=== PATIENT | female | born 1955 | race Caucasian/White ===

== ENCOUNTER 2016-07-24 07:34 | Outpatient (CLI) | payer OTHER ==
[2016-07-24 08:30] LABS: #Basophils 0.1 thou/uL (0.0-0.2); #Eosinphils 0.1 thou/uL (0.0-0.7); #Lymphocytes 1.8 thou/uL (1.20-3.40); #Monocytes 0.6 thou/uL (0.11-0.59); #Neutrophils 2.8 thou/uL (1.40-6.50); %Basophils 1.1 % (0.0-1.0); %Eosinophils 2.3 % (0.0-10.0); %Lymphocytes 33.5 % (21.0-51.0); %Monocytes 11.6 % (0.0-10.0); Hematocrit 42.4 % (36.0-47.0); Mean Platelet Volume 6.3 fL (7.4-10.4); White Blood Cell (WBC) Count 5.5 thou/uL (4.8-10.8)
[2016-07-24 08:45] LABS: ALT (SGPT) 16 U/L (0-55); AST (SGOT) 11 U/L (5-34); Alkaline Phosphatase 63 U/L (40-150); Anion Gap 10 mmol/L (10-20); BUN (Urea Nitrogen) 17 mg/dL (9.8-20.1); Bilirubin, Total 0.3 mg/dL (0.2-1.2); Calc. Creatinine Clearance 0 mL/min (70-130); Calcium 9.3 mg/dL (7.8-10.44); Carbon Dioxide 27 mmol/L (23-31); Chloride 107 mmol/L (98-107); Estimated GFR-MDRD 82; Globulin 3.1 g/dL (2.4-3.5); LDL Cholesterol, Calculated 165 mg/dL; Protein, Total 7.3 g/dL (5.8-8.1)
[2016-07-24 09:08] LABS: Hemoglobin A1c 5.3 % (4.0-6.0)
[2016-07-24 09:29] LABS: Bilirubin Negative (Negative); Blood, Urine Negative (Negative); Glucose, Urine (Dipstick) Negative (Negative); Ketone, Urine Negative (Negative); Nitrite Negative (Negative); Protein, Urine (Dipstick) Negative (Neg-Trace); Urobilinogen 0.2 mg/dL (0.2-1.0)
[2016-07-24 09:36] LABS: Albumin - Urine 10 mg/L (< 20 mg/L); Albumin/Creatinine Ratio LESS THAN 30 mg/g (< 30 mg/g); Bacteria/HPF Rare-Few HPF (None Seen); Creatinine, Urine 100 mg/dL (10-300mg/dL); RBC/HPF 0-3 HPF (0-3); Squamous Epithelial 0-3 HPF (0-3); WBC/HPF 0-3 HPF (0-3)
== END 2016-07-24 07:35 | disposition home or self-care (01) ==
LOC: NAV LAB 07:34
PROVIDERS: ATTEND Family Medicine
DX: Z11.59 Encounter for screening for other viral diseases (principal); E21.1 Secondary hyperparathyroidism, not elsewhere classified; R73.01 Impaired fasting glucose; E78.2 Mixed hyperlipidemia; R53.82 Chronic fatigue, unspecified
CPT/HCPCS: 36415; 80053; 80061; 81001; 82044; 82533; 82570; 83036; 84443; 85025; 86803